=== PATIENT | female | born 1970 | race Caucasian/White ===

== ENCOUNTER → 2017-01-04 | Outpatient (CLI) | payer OTHER | END | disposition disaster alternative care site (69) | LOC: GBCOE 07:29 | DX: Z12.31 Encounter for screening mammogram for malignant neoplasm of breast (principal) | CPT/HCPCS: G0202 ==

== ENCOUNTER 2017-03-30 19:41 | Emergency (ER) | payer OTHER ==
--- NOTE | ~2017-03-30 | ER ---
PATIENT'S NAME: HAILE GAN [facility] AGE: 46 Y [address] ROOM: [place] [id number] LOCATION: [facility] ADMIT DATE: 03/30/2017 ER/Outpatient Report DISCHARGE DATE: 03/30/2017 FAMILY PHYSICIAN: Greta Heaton MD ATTENDING PHYSICIAN: López Gongora Time of Arrival: 1940 hours. Time of Evaluation: 2026 hours. The patient was not seen in a timely manner due to busy ER. CHIEF COMPLAINT: Finger injury. HISTORY OF PRESENT ILLNESS: This is a 46-year-old female who presents to the ER with a left index finger injury that happened prior to arrival. The patient states that she accidentally slammed her finger in a car door and it caused a laceration to the pad of her finger. She states she has good sensation to the finger. She is not for sure when her last tetanus shot was and she denies any other injury at this time. ALLERGIES: NO KNOWN ALLERGIES. MEDICATIONS: Please see medication list in nurse's notes. PAST MEDICAL HISTORY: Kidney stones. PAST SURGICAL HISTORY: Knee surgery, foot surgery, shoulder surgery, ACL surgery, cholecystectomy. SOCIAL HISTORY: Smokes a pack and half a day for 20+ years. Drinks alcohol occasionally. REVIEW OF SYSTEMS: CONSTITUTIONAL: Denies any change in weight or fatigue. MUSCULOSKELETAL: Complaining of left index finger pain. HEMATOLOGIC: No easy bruising or bleeding. SKIN: She has a laceration to the fat pad of her left index finger. PHYSICAL EXAMINATION: VITAL SIGNS: Height 5 feet 7 inches stated, weight 122.9 kg taken, blood PATIENT'S NAME: HAILE GAN [facility] AGE: 46 Y [address] ROOM: [place], [place] [address] LOCATION: [facility] ADMIT DATE: 03/30/2017 ER/Outpatient Report DISCHARGE DATE: 03/30/2017 FAMILY PHYSICIAN: Greta Heaton MD ATTENDING PHYSICIAN: López Gongora pressure is 141/71, pulse 93, respirations 16, temperature 97.6 degrees tympanically, and saturations 85% on room air. Modena Coma Score is 15. GENERAL: Alert, calm, well-developed female, in no acute distress. EXTREMITIES: No clubbing or cyanosis. She does have full range of motion of her left index finger. She does have tenderness to the distal aspect however. She does have good capillary refill. She has full range of motion in all limbs. NEUROLOGIC: Cranial nerves 2 through 12 grossly intact. Gait is steady without assistance. SKIN: She has a 2-cm laceration to the fat pad of her left index finger. LABORATORY DATA: None were done. X-RAYS: X-rays of the left index finger show a nondisplaced fracture of the distal phalanx of her left index finger. IMPRESSION: 1. 2-cm laceration to the fat pad of her left index finger. 2. Nondisplaced fracture of the distal phalanx of the left index finger. ASSESSMENT AND PLAN: I did numb the laceration site with 1% lidocaine. Cleansed the site with Betadine and flushed thoroughly with normal saline. Repaired the laceration with 4-[address] antibiotic and bandage along with a finger splint for support. The patient will be dismissed to home. She needs to ice and elevate the hand. Take Tylenol or ibuprofen as needed for pain control and should follow up with primary care physician in 7 to 10 days for suture removal. We will also send her home with a prescription of Keflex to use as directed. The patient understands and agrees with care. EL BORJA PA-C FOR MD DILEEP MUELLER/dash /[id number] d: t: 04/05/17 1246, OUTPATIENT REPORT
== END 2017-03-30 21:40 | disposition disaster alternative care site (69) ==
LOC: GACC 19:41
PROC: 0HQGXZZ Repair Left Hand Skin, External Approach (ICD-10-PCS; principal; 2017-03-30)
DX: S62.661A Nondisplaced fracture of distal phalanx of left index finger, initial encounter for closed fracture (principal); F17.210 Nicotine dependence, cigarettes, uncomplicated; Z23 Encounter for immunization; Z98.890 Other specified postprocedural states; Z79.899 Other long term (current) drug therapy; Z87.442 Personal history of urinary calculi; Z90.49 Acquired absence of other specified parts of digestive tract; W23.0XXA Caught, crushed, jammed, or pinched between moving objects, initial encounter